=== PATIENT | female | born 1960 | race Two or more races ===

== ENCOUNTER 2024-08-04 07:45 | Inpatient (IN) | payer OTHER ==
[~2024-08-04] VITALS: Ht 162.6 cm; Wt 81.6 kg
[~2024-08-04 07:45] MED LIST: CIPRO500 MG PO
[2024-08-04] MEDS ORDERED: PROAIR RESPICL90 MCG IH (08:39)
[2024-08-04 08:40] VITALS: BP 107/70
[2024-08-04 08:42] VITALS: BP 117/82
[2024-08-04 08:56] LABS: BASO % 0.5 % (0.1-1.2); EOS # 0.42 (0.04-0.54); EOS % 5.5 % (0.7-7.0); LYMPH # 3.43 (1.18-3.74); LYMPH % 44.8 % (19.3-53.1); MEAN PLATELET VOLUME 9.50 fl (9.4-12.4); MONO # 0.68 (0.24-0.82); MONO % 8.9 % (4.7-12.5); NEUT # 3.08 (1.56-6.13); NEUT % 40.2 % (34.0-71.1); RED CELL DISTRIBUTION WIDTH 14.3 % (11.6-14.4)
[2024-08-04 08:58] LABS: URINE APPEARANCE Clear; URINE BILIRRUBIN Negative (NEGATIVE); URINE BLOOD Negative; URINE COLOR Yellow; URINE GLUCOSE Negative (NEGATIVE); URINE KETONE Negative (NEGATIVE); URINE LEUKOCYTE Trace; URINE NITRATE Negative; URINE PROTEIN Negative (NEGATIVE); URINE UROBILINOGEN 0.2 E.U./dl
[2024-08-04 09:00] LABS: URINE BACTERIA 28.1 uL (0.0-1933); URINE EPITHELIAL CELLS 9.3 uL (0.0-38.8); URINE WBC 8.2 uL (0.0-23.2)
[2024-08-04 09:05] LABS: URINE CAST 0.00 uL (0.0-1.40); URINE RBC 0.8 uL (0.0-20.8)
[2024-08-04 09:18] LABS: INR 0.96
[2024-08-04 09:54] LABS: ALT/SGPT 22.0 U/L (12-78); AST/SGOT 10.0 U/L (15-37); BILIRUBIN TOTAL 0.38 mg/dL (0.3-1.2); BUN CREA RATIO 21.0 (7.0-25.0); CHOL HDL RATIO 3.3 (0-5.0); CREATININE SERUM 0.68 mg/dL (0.55-1.02); GFR 86.84; GLOBULINA 3.5 G/DL (2.4-3.5); GLUCOSE FASTING 103.0 mg/dL (65-100); HDL 65.0 mg/dl (40-60); LDL 124.0 mg/dl (0-130); OSMOLALITY SERUM 284.0 MOSM/KG (275-295); VLDL 22.0 (0-39)
[2024-08-04 10:17] LABS: RH NEGATIVE
[2024-08-04 11:27] LABS: COVID-19 AG NEGATIVE (NEGATIVE)
[2024-08-12] MEDS ORDERED: KETOROLAC TROMETHAMINE 60 MG VIAL IM ONE (16:00)
[2024-08-12] MEDS ORDERED: CEFAZOLIN SODIUM 1,000 MG VIAL IV ONE (16:00)
[2024-08-12] MEDS ORDERED: LIDOCAINE HCL 1%/EPINEPHRINE 20ML VIAL IJ ONE (16:00)
[2024-08-12] MEDS ORDERED: BUPIVACAINE HCL 30 ML VIAL IJ ONE (16:00)
[2024-08-12] MEDS ORDERED: MORPHINE SULFATE 4 MG/ML VIAL IV ONE (16:00)
[2024-08-12] MEDS ORDERED: TRANEXAMIC ACID 100MG/1ML (1000MG) AMPUL IV ONE (16:00)
[2024-08-12 19:25] VITALS: BP 107/70
[2024-08-12] MEDS ORDERED: CEFAZOLIN SODIUM 1,000 MG VIAL IV SCH (19:50)
[2024-08-12] MEDS ORDERED: MORPHINE SULFATE 4 MG/ML CARTRIDGE IV PRN (20:00)
[2024-08-12] MEDS ORDERED: ONDANSETRON HCL 2 MG/ML VIAL IV PRN (20:00)
[2024-08-12] MEDS ORDERED: OxyCODONE HCL 5 MG TABLET (ROXICODONE) PO PRN (20:00)
[2024-08-12] MEDS ORDERED: SODIUM CHLORIDE 0.45 % 1,000 ML IV SCH (20:00)
[2024-08-12] MEDS ORDERED: CELECOXIB 200 MG CAPSULE PO SCH (21:00)
[2024-08-13] VITALS: BP 99/65
[2024-08-13] MEDS ORDERED: ACETAMINOPHEN 500 MG GEL..CAP PO SCH
[2024-08-13] MEDS ORDERED: GABAPENTIN 300 MG CAPSULE PO SCH (01:00)
[2024-08-13 06:46] LABS: BASO % 0.2 % (0.1-1.2); EOS # 0.22 (0.04-0.54); EOS % 2.7 % (0.7-7.0); LYMPH # 2.39 (1.18-3.74); LYMPH % 29.7 % (19.3-53.1); MEAN PLATELET VOLUME 9.70 fl (9.4-12.4); MONO # 0.68 (0.24-0.82); MONO % 8.4 % (4.7-12.5); NEUT # 4.73 (1.56-6.13); NEUT % 58.8 % (34.0-71.1); RED CELL DISTRIBUTION WIDTH 14.6 % (11.6-14.4)
[2024-08-13 08:47] VITALS: BP 104/68
[2024-08-13] MEDS ORDERED: APIXABAN 2.5 MG TABLET PO SCH (09:00)
[2024-08-13] MEDS ORDERED: SENNOSIDES 1 TAB TABLET PO SCH (09:00)
[2024-08-13] MEDS ORDERED: DUI500 PO (09:05)
[2024-08-13] MEDS ORDERED: PERCOCET 5-3251 EACH PO (09:05)
[2024-08-13] MEDS ORDERED: ELIQUIS2.5 MG PO (09:05)
[2024-08-13] MEDS ORDERED: ALBUTEROL SULFATE 3 ML/2.5 MG AMPUL.NEB IH SCH (13:00)
[2024-08-13 14:40] LABS: COVID-19 AG NEGATIVE (NEGATIVE)
[2024-08-13 15:14] LABS: ALT/SGPT 18.0 U/L (12-78); AST/SGOT 14.0 U/L (15-37); BILIRUBIN TOTAL 0.62 mg/dL (0.3-1.2); BUN CREA RATIO 19.0 (7.0-25.0); CREATININE SERUM 0.59 mg/dL (0.55-1.02); GFR 102.29; GLOBULINA 3.0 G/DL (2.4-3.5); GLUCOSE FASTING 191.0 mg/dL (65-100); OSMOLALITY SERUM 288.0 MOSM/KG (275-295)
[2024-08-13 16:00] VITALS: BP 94/60
[2024-08-13] MEDS ORDERED: Cyanocobalamin/Mecobalamin 1 TAB.SL SL SCH (17:00)
[2024-08-13] MEDS ORDERED: SOD FERRIC GLUC COMPLX/SUCROSE 62.5 MG/5 ML AMPUL IV SCH (17:00)
[2024-08-14 00:37] VITALS: BP 98/65
[2024-08-14 07:28] LABS: BASO % 0.4 % (0.1-1.2); EOS # 0.24 (0.04-0.54); EOS % 2.9 % (0.7-7.0); LYMPH # 2.77 (1.18-3.74); LYMPH % 33.6 % (19.3-53.1); MEAN PLATELET VOLUME 10.20 fl (9.4-12.4); MONO # 0.93 (0.24-0.82); MONO % 11.3 % (4.7-12.5); NEUT # 4.24 (1.56-6.13); NEUT % 51.4 % (34.0-71.1); RED CELL DISTRIBUTION WIDTH 14.6 % (11.6-14.4)
[2024-08-14 08:44] VITALS: BP 107/68; O2SAT 99
[2024-08-14] MEDS ORDERED: MONTELUKAST SODIUM 10 MG TABLET PO SCH (09:00)
[2024-08-14] MEDS ORDERED: IRON FUM,PS/FOLIC ACID/VITC/B3 1 CAP CAPSULE PO SCH (09:00)
[2024-08-14 16:00] VITALS: BP 111/66
[2024-08-15 00:43] VITALS: BP 112/69
[2024-08-15 08:36] VITALS: BP 101/64
== END 2024-08-15 13:20 | disposition home or self-care (01) | DRG 470 ==
LOC: SURH 08-12 07:45 → OB/GYN 08-12 09:12 → O/R 08-12 09:12 → SURH 08-12 13:45 → OB/GYN 08-12 16:29
PROVIDERS: ADMIT Orthopaedic Surgery; ATTEND Orthopaedic Surgery
PROC: 0SUC07Z Supplement Right Knee Joint with Autologous Tissue Substitute, Open Approach (ICD-10-PCS; 2024-08-12)
PROC: 0SRC0J9 Replacement of Right Knee Joint with Synthetic Substitute, Cemented, Open Approach (ICD-10-PCS; principal; 2024-08-12 13:45)
DX: M17.11 Unilateral primary osteoarthritis, right knee (principal); D62 Acute posthemorrhagic anemia; M22.11 Recurrent subluxation of patella, right knee